=== PATIENT | male | born 1980 | race African-American/Black ===

== ENCOUNTER 2016-04-27 11:13 | Emergency (ER) | payer BC ==
[~2016-04-27] VITALS: Ht 175.3 cm; Wt 60.0 kg
[2016-04-27 11:20] VITALS: TEMP 37.4; Ht 175.3 cm; Wt 60.0 kg
[2016-04-27 12:11] LABS: BASO % 0.3 %; BASO ABS # 0.01 K/uL (0-0.2); COMPLETE YES; EOS % 0.3 %; HEMATOCRIT 45.2 % (42-52); LYMPH % 21.4 %; LYMPH ABS # 0.83 K/uL (1.2-3.4); MEAN CELL VOLUME 83.4 fL (80-100); MEAN CORPUSCULAR HEMOGLOBIN 28.8 pg (25-34); MEAN CORPUSCULAR HGB CONC 34.5 g/dl (32-36); MEAN PLATELET VOLUME 8.9 fL (7.4-10.4); MONO % 12.6 %; NEUT % 65.4 %; PLATELET COUNT 199 K/uL (130-400); RED BLOOD COUNT 5.42 M/uL (4.7-6.1); WHITE BLOOD COUNT 3.88 K/uL (4.8-10.8)
[2016-04-27 12:35] LABS: BUN/CREATININE RATIO 13.9 (10-20); CALCIUM 8.6 mg/dl (8.5-10.1); POTASSIUM 3.9 mmol/L (3.5-5.1)
[2016-04-27 12:37] LABS: ALB/GLOB RATIO 1.1 (0.9-2)
[2016-04-27] MEDS ORDERED: GI COCKTAIL PO STA (12:42)
[2016-04-27] MEDS ORDERED: FAMOTIDINE 20 MG TAB PO STA (12:42)
[2016-04-27] MEDS ORDERED: ONDANSETRON INJ 2 MG/ML 2 ML VIAL IV STA (12:42)
[2016-04-27] MEDS ORDERED: SODIUM CHLORIDE 0.9% 1000ML 1,000 ML IV STA (12:42)
[2016-04-27] MEDS ORDERED: SUCRALFATE 1 GM TAB PO ONE (12:45)
--- NOTE | 2016-04-27 12:46 | EMERGENCY ROOM VISIT NOTE ---
History Report prepared by Ambar: Steve Valverde Under the Supervision of: Dr. Michael Buckner M.D. First contact with patient: 12:18 Chief Complaint: ABDOMINAL PAIN Stated Complaint: ABD PAIN W/NO ABILITY TO EAT X 3 DAYS Nursing Triage Summary: Diffuse abd discomfort x 24 hours. Had flu like symptoms beginning of week. Achy, poor appetite, bloated. Having bowel movements "that are clear liquid". Denies vomiting. History of Present Illness The patient is a 35 year old male who presents to the Emergency Room with complaints of persistent abdominal pain that started around 3 days ago. He notes that at the beginning of the week (around 5 days ago), he was having flu- like symptoms, which included bad aching. The patient says that the symptoms then went into his stomach, and the abdominal pain started. He says the pain is constant and affects his sleep. He has limited appetite and hasn't been able to drink even a half a cup of water. Per the patient's , the patient has been having very clear bowel movements with no actual stool. The patient has not eaten much for 3 days. He denies any vomiting. The patient did eat a salad at a [employer] during this illness. He still has his appendix and gallbladder. The patient took an antibiotic in March for acute bronchitis. He had no diarrhea at that time. Source of History: patient, spouse/significant other Onset: Around 3 days ago Position: abdomen Quality: ache Timing: other (persistent) Associated Symptoms: No vomiting Note: Associated symptoms: Clear bowel movements with no actual stool. Limited appetite, has not eaten for 3 days. Review of Systems See HPI for pertinent positives & negatives. A total of 10 systems reviewed and were otherwise negative. Past Medical & Surgical Medical Problems: (1) Bronchitis Family History Cancer Social History Smoking Status: Never Smoker Alcohol Use: occasionally Marital Status: Housing Status: lives with significant other Occupation Status: employed Current/Historical Medications Scheduled Famotidine (Pepcid), 40 MG PO HS Ondasetron Odt (Zofran Odt), 4 MG SL Q6H Allergies Coded Allergies: No Known Allergies (Unverified , 04/27/16) Physical Exam Vital Signs Date Time Temp Pulse Resp B/P Pulse Ox O2 Delivery O2 Flow Rate FiO2 04/27/16 13:05 64 18 115/66 99 Room Air 04/27/16 11:20 37.4 80 17 146/81 100 Room Air Physical Exam GENERAL: Patient is a healthy-appearing well-nourished HEAD: Normocephalic atraumatic EYES: Ocular movements intact pupils equal and react to light OROPHARYNX mucous membranes are moist no exudates present no erythema or edema present NECK: Supple no nuchal rigidity CHEST: Good equal expansion LUNGS: Clear and equal to auscultation CARDIAC: Normal S1 and S2 ABDOMEN: Soft nontender no guarding BACK: No CVA tenderness EXTREMITIES: No pain upon palpation normal muscle strength in all groups no clubbing cyanosis or edema NEURO: Patient is following commands is answering questions appropriately. Alert and oriented x3 Cranial Nerves 2-12 grossly intact Medical Decision & Procedures ER Provider Diagnostic Interpretation: X-ray results as stated below per interpretation by me and the radiologist: PA CHEST WITH ABDOMINAL SERIES CLINICAL HISTORY: Generalized abdominal pain. FINDINGS: 2 PA chest radiographs are obtained. No prior studies are available for comparison at the time of dictation. The cardiomediastinal silhouette is unremarkable. The lungs and pleural spaces are clear. No pneumothorax is seen. The bony thorax is grossly intact. Supine and erect abdominal radiographs are obtained. No prior studies are available for comparison at the time of dictation. There is a nonobstructed abdominal bowel gas pattern. No evidence of intraperitoneal free air is seen. Numerous calcified gallstones are seen in the right upper quadrant. There is no radiographic evidence of nephrolithiasis. Numerous phleboliths are seen in the pelvis. The lumbosacral spine and bony pelvis appear intact. IMPRESSION: 1. No active disease in the chest. 2. Nonobstructed abdominal bowel gas pattern. 3. Cholelithiasis. Electronically signed by: Arsalan Vuong M.D. 04/27/2016 2:11 PM Dictated Date/Time: 04/27/2016 2:10 PM Laboratory Results 04/27/16 12:01 Red Blood Count 5.42, Mean Corpuscular Volume 83.4, Mean Corpuscular Hemoglobin 28.8, Mean Corpuscular Hemoglobin Concent 34.5, Mean Platelet Volume 8.9, Neutrophils (%) (Auto) 65.4, Lymphocytes (%) (Auto) 21.4, Monocytes (%) (Auto) 12.6, Eosinophils (%) (Auto) 0.3, Basophils (%) (Auto) 0.3, Neutrophils # (Auto ) 2.54, Lymphocytes # (Auto) 0.83, Monocytes # (Auto) 0.49, Eosinophils # (Auto ) 0.01, Basophils # (Auto) 0.01 04/27/16 12:01 Test 04/27/16 12:01 04/27/16 13:35 White Blood Count 3.88 K/uL (4.8-10.8) Red Blood Count 5.42 M/uL (4.7-6.1) Hemoglobin 15.6 g/dL (14.0-18.0) Hematocrit 45.2 % (42-52) Mean Corpuscular Volume 83.4 fL (80-100) Mean Corpuscular Hemoglobin 28.8 pg (25-34) Mean Corpuscular Hemoglobin Concent 34.5 g/dl (32-36) Platelet Count 199 K/uL (130-400) Mean Platelet Volume 8.9 fL (7.4-10.4) Neutrophils (%) (Auto) 65.4 % Lymphocytes (%) (Auto) 21.4 % Monocytes (%) (Auto) 12.6 % Eosinophils (%) (Auto) 0.3 % Basophils (%) (Auto) 0.3 % Neutrophils # (Auto) 2.54 K/uL (1.4-6.5) Lymphocytes # (Auto) 0.83 K/uL (1.2-3.4) Monocytes # (Auto) 0.49 K/uL (0.11-0.59) Eosinophils # (Auto) 0.01 K/uL (0-0.5) Basophils # (Auto) 0.01 K/uL (0-0.2) RDW Standard Deviation 43.6 fL (36.4-46.3) RDW Coefficient of Variation 14.3 % (11.5-14.5) Immature Granulocyte % (Auto) 0.0 % Immature Granulocyte # (Auto) 0.00 K/uL (0.00-0.02) Anion Gap 8.0 mmol/L (3-11) Est Creatinine Clear Calc Drug Dose 87.5 ml/min Estimated GFR () 112.5 Estimated GFR (Non- 97.1 BUN/Creatinine Ratio 13.9 (10-20) Calcium Level 8.6 mg/dl (8.5-10.1) Total Bilirubin 0.8 mg/dl (0.2-1) Aspartate Amino Transf (AST/SGOT) 16 U/L (15-37) Alanine Aminotransferase (ALT/SGPT) 33 U/L (12-78) Alkaline Phosphatase 64 U/L (45-117) Total Protein 7.5 gm/dl (6.4-8.2) Albumin 4.0 gm/dl (3.4-5.0) Globulin 3.5 gm/dl (2.5-4.0) Albumin/Globulin Ratio 1.1 (0.9-2) Lipase 103 U/L (73-393) Urine Color DK YELLOW Urine Appearance CLEAR (CLEAR) Urine pH 5.0 (4.5-7.5) Urine Specific Combs 1.037 (1.000-1.030) Urine Protein NEG (NEG) Urine Glucose (UA) NEG (NEG) Urine Ketones 2+ (NEG) Urine Occult Blood 2+ (NEG) Urine Nitrite NEG (NEG) Urine Bilirubin NEG (NEG) Urine Urobilinogen NEG (NEG) Urine Leukocyte Esterase NEG (NEG) Urine WBC (Auto) 1-5 /hpf (0-5) Urine RBC (Auto) 10-30 /hpf (0-4) Urine Hyaline Casts (Auto) 1-5 /lpf (0-5) Urine Epithelial Cells (Auto) 10-20 /lpf (0-5) Urine Bacteria (Auto) NEG (NEG) Labs reviewed by ED physician. Medications Administered Medications (Trade) Dose Ordered Sig/Trena Route Start Time Stop Time Status Last Admin Dose Admin Sodium Chloride (Nss 1000ml) 1,000 ml @ 999 mls/hr Q1H1M STAT IV 04/27/16 12:42 04/27/16 13:42 DC 04/27/16 13:03 999 MLS/HR Famotidine (Pepcid Tab) 20 mg NOW STAT PO 04/27/16 12:42 04/27/16 12:45 DC 04/27/16 13:00 20 MG Sucralfate (Carafate Tab) 1 gm NOW ONCE PO 04/27/16 12:45 04/27/16 12:46 DC 04/27/16 13:00 1 GM Lidocaine HCl (Viscous Lidocaine 2% Soln) 20 ml STK-MED ONCE .ROUTE 04/27/16 12:55 04/27/16 12:56 DC 04/27/16 13:00 20 ML Al Hydroxide/Mg Hydroxide (Maalox Susp) 30 ml STK-MED ONCE .ROUTE 04/27/16 12:55 04/27/16 12:56 DC 04/27/16 13:00 30 ML ED Course 1236: Past medical records reviewed. The patient was evaluated in room C6. A complete history and physical examination was performed. 1242: Ordered Pepcid Tab 20 mg PO, GI Cocktail 24 ml PO, Zofran Inj 4 mg IV, NSS 1000 ml @ 999 mls/hr IV. 1245: Ordered Carafate Tab 1 gm PO. 1433: Ordered Questran Powder Light 4 gm PO. 1440: I reevaluated the patient and he is resting comfortably. The patient verbally expressed understanding and agreement of the treatment plan. The patient will be discharged. Medical Decision Differential diagnosis: Etiologies such as appendicitis, diverticulitis, PUD, biliary pathology, UTI, pancreatitis, obstruction, mesenteric ischemia, aortic pathology, infections, inflammatory bowel disease, renal colic, as well as others were entertained. Impression Primary Impression: Acute gastroenteritis Scribe Attestation The scribe's documentation has been prepared under my direction and personally reviewed by me in its entirety. I confirm that the note above accurately reflects all work, treatment, procedures, and medical decision making performed by me. Departure Information Dispostion Home / Self-Care Prescriptions Famotidine (Pepcid) 40 Mg Tab 40 MG PO HS, #10 TAB Prov: Michael Buckner MD 04/27/16 Ondasetron Odt (ZOFRAN ODT) 4 Mg Tab 4 MG SL Q6H for Nausea, #6 TAB Prov: Michael Buckner MD 04/27/16 Referrals No Doctor, Assigned (PCP) Forms Call Back Authorization, HOME CARE DOCUMENTATION FORM, IMPORTANT VISIT INFORMATION, School Instructions, Work Instructions Patient Instructions ED Diet Vomiting Diarrhea, ED Gastroenteritis Vs Food Poison, My [facility] Additional Instructions Take 5 ml Maalox before every meal and at bedtime Take probiotic yogurt for diarrhea Culture results are usually available in approx 48 hours You have been examined and treated today on an emergency basis only. This is not a substitute for, or an effort to provide, complete comprehensive medical care. It is impossible to recognize and treat all injuries or illnesses in a single emergency department visit. It is therefore important that you follow up closely with your PCP. Call as soon as possible for an appointment. Thank you for your time and consideration. I look forward to speaking with you again soon. Please don't hesitate to call us if you have any questions.
[2016-04-27] MEDS ORDERED: ALUMINUM/MAGNESIUM SUSP 30 ML UDC ONE (12:55)
[2016-04-27] MEDS ORDERED: LIDOCAINE HCL 2% VISC SOLN 20 ML UDC ONE (12:55)
[2016-04-27 14:01] LABS: URINE APPEARANCE CLEAR (CLEAR); URINE COLOR DK YELLOW; URINE NITRITE NEG (NEG); URINE SPECIFIC GRAVITY 1.037 (1.000-1.030); UROBILINOGEN NEG (NEG); ZZUR CULT IF INDIC CLEAN CATCH NO
[2016-04-27 14:04] LABS: MANUAL MICROSCOPIC REQUIRED? NO; REVIEW REQ? NO; URINE BILIRUBIN NEG (NEG)
--- NOTE | 2016-04-27 14:13 | DIAGNOSTIC IMAGING REPORT ---
PA CHEST WITH ABDOMINAL SERIES CLINICAL HISTORY: Generalized abdominal pain. FINDINGS: 2 PA chest radiographs are obtained. No prior studies are available for comparison at the time of dictation. The cardiomediastinal silhouette is unremarkable. The lungs and pleural spaces are clear. No pneumothorax is seen. The bony thorax is grossly intact. Supine and erect abdominal radiographs are obtained. No prior studies are available for comparison at the time of dictation. There is a nonobstructed abdominal bowel gas pattern. No evidence of intraperitoneal free air is seen. Numerous calcified gallstones are seen in the right upper quadrant. There is no radiographic evidence of nephrolithiasis. Numerous phleboliths are seen in the pelvis. The lumbosacral spine and bony pelvis appear intact. IMPRESSION: 1. No active disease in the chest. 2. Nonobstructed abdominal bowel gas pattern. 3. Cholelithiasis. Electronically signed by: Arsalan Vuong M.D. 04/27/2016 2:11 PM Dictated Date/Time: 04/27/2016 2:10 PM
[2016-04-27] MEDS ORDERED: CHOLESTYRAMINE LIGHT 4 GM PKT PO STA (14:33)
[2016-04-27] MEDS ORDERED: FAMO40TA6 PO (14:47)
[2016-04-27] MEDS ORDERED: ONDA4TAB10 SL (14:47)
[2016-04-27 15:22] VITALS: BP 122/73; PULSE 65; O2SAT 99
== END 2016-04-27 15:23 | disposition home or self-care (01) ==
LOC: C.EDB 11:15 → C.EDC 15:23
DX: K52.9 Noninfective gastroenteritis and colitis, unspecified (principal)